=== PATIENT | male | born 2000 | race Two or more races ===

== ENCOUNTER 2019-12-08 04:40 | Emergency (ER) | payer SELFPAY ==
[~2019-12-08] VITALS: Ht 177.8 cm; Wt 72.7 kg
--- NOTE | 2019-12-08 04:58 | PHYS DOC ---
General Adult EDM: Chief Complaint: ABDOMINAL PAIN HPI: HPI: Patient is a 19 year old male who presents with complaint of right lower quadrant abdominal pain that started last night at about 8 PM. Patient states that pain is remained in that area. He indicates that pain is worsened with walking and with going over bumps. He states that at its worst pain was about a 9 out of 10. He states that he has had episodes of nausea with vomiting. He states that he feels like he has to hunch over when he is walking. He denies any chest pain or shortness of breath. He does indicate that he has decreased appetite. [] (RAD FOWLER Jr. DO) Review of Systems: Review of Systems: Constitutional: Denies fever or chills. [] Respiratory: Denies cough or shortness of breath. [] Cardiovascular: Denies chest pain or edema. [] GI: Complains of right lower quadrant abdominal pain with nausea and vomiting. [] : Denies dysuria. [] Neurologic: Denies headache, focal weakness or sensory changes. [] A full 10 point review of systems has been reviewed and is otherwise negative. (RAD FOWLER Jr. DO) Heart Score: Risk Factors: Risk Factors: DM, Current or recent (<one month) smoker, HTN, HLP, family history of CAD, obesity. Risk Scores: Score 0 - 3: 2.5% MACE over next 6 weeks - Discharge Home Score 4 - 6: 20.3% MACE over next 6 weeks - Admit for Clinical Observation Score 7 - 10: 72.7% MACE over next 6 weeks - Early Invasive Strategies (RAD FOWLER Jr. DO) Physical Exam: PE: Constitutional: Well developed, well nourished, no acute distress, non-toxic appearance. [] HENT: Normocephalic, atraumatic, bilateral external ears normal, oropharynx moist, no oral exudates, nose normal. [] Eyes: PERRLA, EOMI, conjunctiva normal, no discharge. [] Neck: Normal range of motion, no tenderness, supple. [] Cardiovascular: Regular rate and rhythm [] Lungs & Thorax: Bilateral breath sounds clear to auscultation [] Abdomen: Bowel sounds normal, soft, with right lower quadrant tenderness. [] Skin: Warm, dry, no erythema, no rash. [] Extremities: No tenderness, no cyanosis, no clubbing, ROM intact, no edema. [] Neurologic: Alert and oriented X 3, no focal deficits noted. [] (RAD FOWLER Jr., DO) EKG: EKG: [] (RAD FOWLER Jr., DO) Radiology/Procedures: Radiology/Procedures: [] (RAD FOWLER Jr., DO) Course & Med Decision Making: Course & Med Decision Making Pertinent Labs and Imaging studies reviewed. (See chart for details) [] (RAD FOWLER Jr., DO) Dragon Disclaimer: Dragon Disclaimer: This electronic medical record was generated, in whole or in part, using a voice recognition dictation system. (RAD FOWLER Jr., DO) Departure Departure Impression: Primary Impression: Kidney stone Disposition: HOME, SELF-CARE Condition: IMPROVED Scripts Oxycodone/Apap 5-325 (PERCOCET 5-325 MG TABLET ) 1 Each Tablet 1 TAB PO PRN Q6HRS PRN for PAIN, #6 TAB 0 Refills Prov: JERMAINE SCALES MD 12/08/19 RAD FOWLER Jr. DO December 08, 2019 04:58 JERMAINE SCALES MD December 08, 2019 08:01
[2019-12-08] MEDS ORDERED: fentaNYL PF VIAL 100 MCG/2 ML VIAL IV PRN (05:00)
[2019-12-08] MEDS ORDERED: fentaNYL PF VIAL 100 MCG/2 ML VIAL ONE (05:01)
[2019-12-08 05:05] LABS: BASO % 0 % (0-3); EOS % 0 % (0-3); HEMATOCRIT 46.1 % (39.0-53.0); HEMOGLOBIN 16.7 g/dL (13.0-17.5); LYMPH # 1.2 x10^3/uL (1.0-4.8); LYMPH % 8 % (24-48); MEAN CORPUSCULAR HEMOGLOBIN 33 pg (25-35); MEAN CORPUSCULAR HGB CONC 36 g/dL (31-37); MEAN CORPUSCULAR VOLUME 90 fL (79-100); MONO # 0.9 x10^3/uL (0.0-1.1); MONO % 6 % (0-9); NEUT # 12.5 x10^3/uL (1.8-7.7); NEUT % 85 % (31-73); PLATELET COUNT 281 x10^3/uL (140-400); RED BLOOD COUNT 5.12 x10^6/uL (4.30-5.70); RED CELL DISTRIBUTION WIDTH 13.1 % (11.5-14.5); WHITE BLOOD COUNT 14.6 x10^3/uL (4.0-11.0)
[2019-12-08 05:07] LABS: BILIRUBIN,URINE SMALL (NEG); CLARITY,URINE CLEAR; COLOR,URINE YELLOW; NITRITE,URINE NEGATIVE (NEG); PROTEIN,URINE 30 mg/dL (NEG-TRACE); UROBILINOGEN,URINE 0.2 mg/dL (0.2 mg/dL)
[2019-12-08 05:14] LABS: CALCIUM 9.3 mg/dL (8.5-10.1); CREATININE 1.4 mg/dL (0.7-1.3); POTASSIUM 3.3 mmol/L (3.5-5.1)
[2019-12-08 05:18] LABS: BACTERIA,URINE 0 /HPF (0-FEW); SQUAMOUS EPITHELIAL CELL,UR OCC /LPF; WBC,URINE OCC /HPF (0-4)
[2019-12-08 05:20] LABS: ALBUMIN 4.6 g/dL (3.4-5.0); TOTAL BILIRUBIN 1.7 mg/dL (0.2-1.0); TOTAL PROTEIN 9.1 g/dL (6.4-8.2)
[2019-12-08] MEDS ORDERED: IV NORMAL SALINE 1000ML BAG 1,000 ML IV SCH (05:30)
[2019-12-08] MEDS ORDERED: ONDANSETRON PF 4 MG/2 ML VIAL. IVP ONE (05:30)
[2019-12-08 06:41] LABS: % BANDS 1 % (0-9); % LYMPHS 6 % (24-48); % MONOS 5 % (0-10); % SEGS 88 % (35-66)
[2019-12-08 06:42] LABS: ANISOCYTOSIS SLIGHT; PLT ESTIMATE ADEQUATE (ADEQUATE)
[2019-12-08] MEDS ORDERED: CONTRAST GIVEN. MC PRN (06:45)
[2019-12-08] MEDS ORDERED: IOHEXOL 240 MG/ML 50ML VIAL. PO ONE (07:00)
--- NOTE | 2019-12-08 07:03 | RAD ---
EXAM: CT ABDOMEN/PELVIS WITHOUT CONTRAST. HISTORY: Right lower quadrant and right flank pain. TECHNIQUE: Computed tomography of the abdomen and pelvis was performed without intravenous contrast. One or more of the following individualized dose reduction techniques were utilized for this examination: 1. Automated exposure control. 2. Adjustment of the mA and/or kV according to patient size. 3. Use of iterative reconstruction technique. COMPARISON: None. FINDINGS: Lung windows through the visualized portions of the bases reveal no abnormality. Bone windows reveal no suspicious lesions. The liver, gallbladder, spleen, adrenal glands and pancreas are unremarkable without contrast. There are no pathologically enlarged lymph nodes. The appendix is not inflamed. There is no small bowel obstruction. A calculus at the orifice of the right ureterovesical junction measures 3 mm. It may have already passed into the bladder. There is moderate right hydronephrosis with diffuse calyceal dilatation. No additional renal or ureteral calculi are seen bilaterally. There are no suspicious renal lesions. IMPRESSION: 1. 3 mm calculus either at the orifice of the right ureterovesical junction or already within the bladder. Moderate right hydronephrosis. Follow-up to resolution is recommended. Electronically signed by: Frankie Elizabeth MD (12/08/2019 7:00 AM) [facility]
[2019-12-08] MEDS ORDERED: IV NORMAL SALINE 1000ML BAG 1,000 ML IV ONE (07:15)
[2019-12-08] MEDS ORDERED: oxyCODONE/APAP 5/325 1 TAB TABLET PO ONE (07:15)
[2019-12-08 07:17] VITALS: BP 136/59
[2019-12-08] MEDS ORDERED: OXYC1TAB15 PO (07:24)
== END 2019-12-08 08:17 | disposition home or self-care (01) ==
LOC: ER 04:40
DX: N20.0 Calculus of kidney (principal); R11.2 Nausea with vomiting, unspecified
CPT/HCPCS: 36415; 74176; 80053; 81001; 83690; 85007; 85025; 96361; 96374; 96375; 99285; J2405; J3010; J7030; Q9966